=== PATIENT | male | born 1975 | race Caucasian/White ===

== ENCOUNTER 2016-05-28 10:02 | Emergency (ER) | payer OTHER ==
[2016-05-28 10:07] VITALS: BP 168/89; PULSE 82; RESP 16; TEMP 97
--- NOTE | 2016-05-28 10:26 | ED ---
ENT HPI - General Chief complaint: ENT Stated complaint: ear ache Time Seen by Provider: 05/28/16 10:18 Source: patient, RN notes reviewed Mode of arrival: ambulatory Limitations: no limitations - History of Present Illness Initial comments: 41-year-old male presents to the emergency department with a chief complaint of left ear pain and left-sided dental pain. Patient states she's had this pain for the past few days. Patient states that he had a fracture to his tooth about one week ago. Patient states last night his jaw was hurting more. Patient's ear was hurting and he had some blood in his mouth. Patient denies any fever chills cough cold runny nose with this. Patient denies any difficulty opening or closing the mouth or any pain radiating to the neck. Patient states he was concerned due to his continued pain so he thought that he should be evaluated. Patient denies any recent fever, chills, shortness of breath, chest pain, back pain, abdominal pain, nausea vomiting, numbness or tingling, dysuria or hematuria, constipation or diarrhea, headaches or visual changes, or any other current symptoms. - Related Data Previous Rx's Medication Instructions Recorded Erythromycin Ophth Oint [Romycin 1 applic RIGHT EYE QID #3.5 gm 04/03/15 Ophth Oint] Ibuprofen [Motrin] 600 mg PO Q6HR PRN #20 tab 05/28/16 Penicillin V Potassium [Pen Vee K] 500 mg PO TID #40 tab 05/28/16 Allergies Allergy/AdvReac Type Severity Reaction Status Date / Time No Known Allergies Allergy Verified 05/28/16 10:06 Review of Systems ROS Statement: Those systems with pertinent positive or pertinent negative responses have been documented in the HPI. ROS Other: All systems not noted in ROS Statement are negative. Past Medical History Past Medical History: No Reported History History of Any Multi-Drug Resistant Organisms: None Reported Past Surgical History: No Surgical Hx Reported Past Psychological History: No Psychological Hx Reported Smoking Status: Never smoker Past Alcohol Use History: None Reported Past Drug Use History: None Reported General Exam Limitations: no limitations General appearance: alert, in no apparent distress Head exam: Present: atraumatic, normocephalic, normal inspection ENT exam: Present: mucous membranes moist, TM's normal bilaterally Expanded Ear exam: Present: normal external inspection Mouth exam: Present: normal external inspection Teeth exam: Present: dental caries (Diffuse), fractured tooth # (18), other (No abscess). Absent: dental tenderness #, gingival enlargement Throat exam: normal inspection, tonsillar erythema Neck exam: Present: normal inspection. Absent: tenderness, meningismus, lymphadenopathy Respiratory exam: Present: normal lung sounds bilaterally. Absent: respiratory distress, wheezes, rales, rhonchi, stridor Cardiovascular Exam: Present: regular rate, normal rhythm, normal heart sounds. Absent: systolic murmur, diastolic murmur, rubs, gallop, clicks Neurological exam: Present: alert, oriented X3, CN II-XII intact. Absent: motor sensory deficit Psychiatric exam: Present: normal affect, normal mood Skin exam: Present: warm, dry, intact, normal color. Absent: rash Course Vital Signs 05/28/16 10:04 Temperature 97 F L Pulse Rate 82 Respiratory 16 Rate Blood Pressure 168/89 O2 Sat by Pulse 98 Oximetry Medical Decision Making - Medical Decision Making 41-year-old male presents with what appears to be most likely dental caries causing the patient's discomfort. Family stated that we will start him pain medication as well as antibiotics. We did discuss follow-up with his dentist discussed return parameters. Discussed all the patient's questions. He stated he understood and is in agreement with plan. This and will be discharged home. Disposition Clinical Impression: Dental caries Disposition: HOME SELF-CARE Condition: Stable Instructions: Dental Caries (ED) Additional Instructions: Please use medication as discussed. Please follow up with family doctor if symptoms have not improved over the next two days. Please return to the emergency room if your symptoms increase or worsen or for any other concerns. [facility] [place] [address] [phone] (existing clients only) For new clients: [phone] 1st consult: $50 (includes Xrays) Usually 30% less then private dentist for visits after. [employer] Have to pay $50 for Xrays anmd rest is covered. [phone] Prescriptions: Ibuprofen [Motrin] 600 mg PO Q6HR PRN #20 tab PRN Reason: Pain Penicillin V Potassium [Pen Vee K] 500 mg PO TID #40 tab Referrals: Malgorzata Lopez MD [STAFF PHYSICIAN] - 1-2 days Time of Disposition: 10:26
== END 2016-05-28 10:38 | disposition home or self-care (01) ==
LOC: EC 10:02
DX: K02.9 Dental caries, unspecified (principal); S02.5XXA Fracture of tooth (traumatic), initial encounter for closed fracture; H92.09 Otalgia, unspecified ear
CPT/HCPCS: 99282

== ENCOUNTER 2018-10-01 16:44 | Emergency (ER) | payer OTHER ==
[2018-10-01] MEDS ORDERED: MECLIZINE 12.5 MG TAB PO STA (17:09)
[2018-10-01] MEDS ORDERED: ONDANSETRON ODT 4 MG TAB PO STA ×2 (17:10→18:23)
--- NOTE | 2018-10-01 17:12 | ED ---
General Adult HPI - General Chief complaint: Nausea/Vomiting/Diarrhea Stated complaint: Dizzy, vomiting Time Seen by Provider: 10/01/18 17:01 Source: patient Mode of arrival: wheelchair Limitations: no limitations - History of Present Illness Initial comments: 23-year-old male presenting with room spinning dizziness, nausea, vomiting. Patient states his symptoms started at 10 AM with the dizziness. They have progressed and he has had multiple episodes of emesis. He denies FRANCISCO, vision change, focal weakness or numbness, chest pain, shortness of breath, fevers, or diarrhea. He denies history of vertigo or recent head injury. - Related Data Home Medications Medication Instructions Recorded Confirmed Dextroamphetamine/Amphetamine 10 mg PO BID 10/01/18 10/01/18 [Adderall] Dextroamphetamine/Amphetamine 20 mg PO BID 10/01/18 10/01/18 [Adderall] Previous Rx's Medication Instructions Recorded Meclizine [Antivert] 25 mg PO TID PRN #30 tab 10/01/18 Ondansetron Odt [Zofran Odt] 4 mg PO Q8HR PRN #15 tab 10/01/18 Allergies Allergy/AdvReac Type Severity Reaction Status Date / Time No Known Allergies Allergy Verified 10/01/18 18:00 Review of Systems ROS Statement: Those systems with pertinent positive or pertinent negative responses have been documented in the HPI. Review of Systems Constitutional: Denies fever, chills. Positive dizziness. Eyes: Denies change in vision, Denies pain Ears, nose, mouth, throat: Denies headaches, Denies sore throat Cardiovascular: Denies chest pain. Denies palpitations Respiratory: Denies shortness of breath, Denies cough Gastrointestinal: Denies abdominal pain. Positive nausea, vomiting, Denies diarrhea. Genitourinary: Denies hematuria, Denies infections Musculoskeletal: Denies pain, Denies swelling Integumentary: Denies rash Neurological: Denies headache, focal weakness, focal numbness Psychiatric: Denies anxiety, Denies depression Hematologic/Lymphatic: Denies easy bleeding or bruising ROS Other: All systems not noted in ROS Statement are negative. Past Medical History Past Medical History: No Reported History History of Any Multi-Drug Resistant Organisms: None Reported Past Surgical History: No Surgical Hx Reported Past Psychological History: No Psychological Hx Reported Smoking Status: Never smoker Past Alcohol Use History: None Reported Past Drug Use History: None Reported General Exam - General Exam Comments Initial Comments: General: Awake, alert, No acute Distress HENT: Normocephalic. Atraumatic Eyes: PERRL. EOMI. No scleral icterus. No injected conjunctiva. Bilateral fatigable nystagmus Neck: Full ROM Chest/Lungs: Clear to auscultation bilaterally. No wheezing, rhonchi, or rales Cardiac: Regular rate, rhythm. No murmurs or rubs Abdomen/GI: Soft, nontender, nondistended. No rebound, guarding, or rigidity. Musculoskeletal: Full ROM Skin: Warm, dry, intact Neurologic: A/Ox3, no weakness, no sensory deficit, no abnormal gait, no coordination deficit. Finger to nose intact bilaterally. rapid alternating movement intact bilaterally. Limitations: no limitations Course Vital Signs 10/01/18 10/01/18 10/01/18 16:56 18:23 18:28 Temperature 97.8 F 97.6 F Pulse Rate 87 80 Respiratory 18 14 Rate Blood Pressure 154/109 161/104 O2 Sat by Pulse 96 97 Oximetry 10/01/18 10/01/18 18:52 19:13 Temperature 97.6 F 97.2 F L Pulse Rate 78 78 Respiratory 13 18 Rate Blood Pressure 159/104 158/95 O2 Sat by Pulse 97 97 Oximetry EKG Findings - EKG Comments: EKG Findings:: EKG shows normal sinus rhythm at a rate of 77 bpm. MN interval 142 ms, QRS duration 114 ms, QT/QTc 404/[address] segment elevation, depression. No prolonged QT/QTc or MN interval. No dysrythmia noted. Medical Decision Making - Medical Decision Making 43 year-old male presenting from sitting dizziness. Initial exam the patient is awake, alert, no acute distress. VSS. Symptoms improved while in the emergency department. CT was negative. At this time the patient's symptoms are likely secondary to peripheral vertigo. No further emergent workup indicated. The patient was given return to ED instructions. They were instructed to follow up with their primary care provider. Stable for discharge at this time. Disposition Clinical Impression: Vertigo Disposition: HOME SELF-CARE Condition: Good Instructions (If sedation given, give patient instructions): Vertigo (ED), Hypertension (ED) Additional Instructions: Follow-up with your primary care physician this week. Prescriptions: Meclizine [Antivert] 25 mg PO TID PRN #30 tab PRN Reason: Vertigo Ondansetron Odt [Zofran Odt] 4 mg PO Q8HR PRN #15 tab PRN Reason: Nausea Is patient prescribed a controlled substance at d/c from ED?: No Referrals: None,Stated [REFERRING] - 1-2 days
--- NOTE | 2018-10-01 18:07 | CT ---
EXAMINATION TYPE: CT brain wo con DATE OF EXAM: 10/01/2018 COMPARISON: None HISTORY: Pt feeling diaphoretic, dizziy w/ N/V. CT DLP: 1150.4 mGycm. Automated Exposure Control for Dose Reduction was Utilized. TECHNIQUE: CT scan of the head is performed without contrast. FINDINGS: Ventricles of normal size. There is no mass effect nor midline shift. There is no sign of i ntracranial hemorrhage. Calvarium is intact. IMPRESSION: Negative CT scan of the brain.
[2018-10-01] MEDS ORDERED: DIAZEPAM 5 MG TAB PO STA (18:23)
[2018-10-01 18:53] VITALS: PULSE 78
[2018-10-01 19:15] VITALS: BP 158/95; RESP 18; TEMP 97.2
[2018-10-01] MEDS ORDERED: ONDANSETRON 4 MG ODT STARTER PACK 2 TAB BTL PO STA (19:16)
== END 2018-10-01 19:44 | disposition home or self-care (01) ==
LOC: EC 16:44
DX: R42 Dizziness and giddiness (principal); H55.09 Other forms of nystagmus; R11.2 Nausea with vomiting, unspecified
CPT/HCPCS: 93005; 70450; 99284; S0119

== ENCOUNTER 2021-09-27 16:48 | Emergency (ER) | payer BC ==
[2021-09-27] MEDS ORDERED: SODIUM CHLORIDE 0.9% 500 ML 500 ML IV ONE (17:15)
[2021-09-27 17:38] LABS: Basophils # (A) 0.1 k/uL (0-0.2); Basophils % (A) 1 %; Eosinophils # (A) 0.3 k/uL (0-0.7); Eosinophils % (A) 3 %; HCT 48.6 % (39.0-53.0); HGB 16.9 gm/dL (13.0-17.5); Lymphocytes # (A) 1.9 k/uL (1.0-4.8); Lymphocytes % (A) 19 %; MCH 32.1 pg (25.0-35.0); MCHC 34.7 g/dL (31.0-37.0); MCV 92.4 fL (80.0-100.0); Mean Platelet Volume 7.5; Monocytes # (A) 0.3 k/uL (0-1.0); Monocytes % (A) 3 %; Neutrophils # (A) 7.1 k/uL (1.3-7.7); Neutrophils % (A) 73 %; Platelet Count 256 k/uL (150-450); RBC 5.25 m/uL (4.30-5.90); RDW 13.6 % (11.5-15.5); WBC 9.7 k/uL (3.8-10.6)
--- NOTE | 2021-09-27 17:42 | ED ---
General Adult HPI - General Chief complaint: Chest Pain Stated complaint: chest pain Time Seen by Provider: 09/27/21 17:01 Source: patient, RN notes reviewed, old records reviewed Mode of arrival: ambulatory Limitations: no limitations - History of Present Illness Initial comments: 46-year-old male presenting for evaluation of lightheadedness, chest pain and pressure and diaphoresis. Patient states he had been working throughout the morning, feeling pretty much normal and then suddenly began feeling his symptoms of lightheadedness, nausea, chest pressure. He has no prior history of coronary artery disease. He does admit the history of hypertension and smoking. Symptoms have resolved with time my evaluation. - Related Data Home Medications Medication Instructions Recorded Confirmed Acetaminophen Tab [Tylenol Tab] 1,000 mg PO Q6HR PRN 09/27/21 09/27/21 Dextroamphetamine/Amphetamine 30 mg PO DAILY 09/27/21 09/27/21 [Adderall Xr 30 mg Capsule] Ibuprofen [Motrin Ib] 200 mg PO Q8H PRN 09/27/21 09/27/21 carvediloL [Coreg] 25 mg PO DAILY 09/27/21 09/27/21 Allergies Allergy/AdvReac Type Severity Reaction Status Date / Time No Known Allergies Allergy Verified 09/27/21 18:22 Review of Systems ROS Statement: Those systems with pertinent positive or pertinent negative responses have been documented in the HPI. ROS Other: All systems not noted in ROS Statement are negative. Past Medical History Past Medical History: Hypertension History of Any Multi-Drug Resistant Organisms: None Reported Past Surgical History: No Surgical Hx Reported Past Psychological History: No Psychological Hx Reported Smoking Status: Never smoker Past Alcohol Use History: None Reported Past Drug Use History: Marijuana General Exam Limitations: no limitations General appearance: alert, in no apparent distress Head exam: Present: atraumatic, normocephalic Eye exam: Present: normal appearance, PERRL ENT exam: Present: normal exam Neck exam: Present: normal inspection. Absent: tenderness, meningismus Respiratory exam: Present: normal lung sounds bilaterally. Absent: respiratory distress, wheezes, rales Cardiovascular Exam: Present: regular rate, normal rhythm GI/Abdominal exam: Present: soft. Absent: distended, tenderness, guarding Extremities exam: Present: normal inspection, normal capillary refill. Absent: pedal edema Neurological exam: Present: alert, oriented X3, CN II-XII intact. Absent: motor sensory deficit Psychiatric exam: Present: normal affect, normal mood Skin exam: Present: warm, dry, intact. Absent: cyanosis, diaphoretic Course Vital Signs 09/27/21 09/27/21 16:50 18:08 Temperature 97.6 F 98.2 F Pulse Rate 74 68 Respiratory 16 16 Rate Blood Pressure 125/66 123/80 O2 Sat by Pulse 96 95 Oximetry - Reevaluation(s) Reevaluation #1: 09/27/21 20:02 No further chest pain while emergency department EKG Findings - EKG Comments: EKG Findings:: EKG: Sinus rhythm, interventricular conduction delay, ST segment depression in lead 3. No ST segment elevation, rate 67, AR interval 159, QRS duration 118, QTC 434 Medical Decision Making - Medical Decision Making 46-year-old male with presented with an episode of lightheadedness, diaphoresis and chest discomfort. He states that the pain or discomfort in his chest is quite minimal. He has no prior history of CAD. EKG shows sinus rhythm without ST segment elevation. Chest x-rays clear. He has a normal CBC, normal CMP with the exception of mild hyperglycemia. Initial troponin is negative. I discussed admission for serial cardiac enzymes, further evaluation, telemetry and cardiology consultation. Patient declines. He is agreeable to repeat 3R troponin in the emergency department. This is performed and is negative. I did discuss results with the patient and indicated that the patient should return with any worsening or changing symptoms and he should follow-up with his primary care physician. - Lab Data Result diagrams: 09/27/21 17:26 09/27/21 17:26 Lab Results 09/27/21 09/27/21 09/27/21 Range/Units 17:26 17:26 17:26 WBC 9.7 (3.8-10.6) k/uL RBC 5.25 (4.30-5.90) m/uL Hgb 16.9 (13.0-17.5) gm/dL Hct 48.6 (39.0-53.0) % MCV 92.4 (80.0-100.0) fL MCH 32.1 (25.0-35.0) pg MCHC 34.7 (31.0-37.0) g/dL RDW 13.6 (11.5-15.5) % Plt Count 256 (150-450) k/uL MPV 7.5 Neutrophils % 73 % Lymphocytes % 19 % Monocytes % 3 % Eosinophils % 3 % Basophils % 1 % Neutrophils # 7.1 (1.3-7.7) k/uL Lymphocytes # 1.9 (1.0-4.8) k/uL Monocytes # 0.3 (0-1.0) k/uL Eosinophils # 0.3 (0-0.7) k/uL Basophils # 0.1 (0-0.2) k/uL PT 10.7 (9.0-12.0) sec INR 1.0 (<1.2) APTT 22.4 (22.0-30.0) sec Sodium 137 (137-145) mmol/L Potassium 3.9 (3.5-5.1) mmol/L Chloride 105 (98-107) mmol/L Carbon Dioxide 22 (22-30) mmol/L Anion Gap 10 mmol/L BUN 15 (9-20) mg/dL Creatinine 1.22 (0.66-1.25) mg/dL Est GFR (CKD-EPI)AfAm 83 (>60 ml/min/1.73 sqM) Est GFR (CKD-EPI)NonAf 72 (>60 ml/min/1.73 sqM) Glucose 173 H (74-99) mg/dL Calcium 9.1 (8.4-10.2) mg/dL Magnesium 1.9 (1.6-2.3) mg/dL Total Bilirubin 0.9 (0.2-1.3) mg/dL AST 32 (17-59) U/L ALT 30 (4-49) U/L Alkaline Phosphatase 66 (38-126) U/L Troponin I (0.000-0.034) ng/mL NT-Pro-B Natriuret Pep pg/mL Total Protein 7.5 (6.3-8.2) g/dL Albumin 4.3 (3.5-5.0) g/dL 09/27/21 09/27/21 09/27/21 Range/Units 17:26 17:26 19:25 WBC (3.8-10.6) k/uL RBC (4.30-5.90) m/uL Hgb (13.0-17.5) gm/dL Hct (39.0-53.0) % MCV (80.0-100.0) fL MCH (25.0-35.0) pg MCHC (31.0-37.0) g/dL RDW (11.5-15.5) % Plt Count (150-450) k/uL MPV Neutrophils % % Lymphocytes % % Monocytes % % Eosinophils % % Basophils % % Neutrophils # (1.3-7.7) k/uL Lymphocytes # (1.0-4.8) k/uL Monocytes # (0-1.0) k/uL Eosinophils # (0-0.7) k/uL Basophils # (0-0.2) k/uL PT (9.0-12.0) sec INR (<1.2) APTT (22.0-30.0) sec Sodium (137-145) mmol/L Potassium (3.5-5.1) mmol/L Chloride (98-107) mmol/L Carbon Dioxide (22-30) mmol/L Anion Gap mmol/L BUN (9-20) mg/dL Creatinine (0.66-1.25) mg/dL Est GFR (CKD-EPI)AfAm (>60 ml/min/1.73 sqM) Est GFR (CKD-EPI)NonAf (>60 ml/min/1.73 sqM) Glucose (74-99) mg/dL Calcium (8.4-10.2) mg/dL Magnesium (1.6-2.3) mg/dL Total Bilirubin (0.2-1.3) mg/dL AST (17-59) U/L ALT (4-49) U/L Alkaline Phosphatase (38-126) U/L Troponin I <0.012 <0.012 (0.000-0.034) ng/mL NT-Pro-B Natriuret Pep 259 pg/mL Total Protein (6.3-8.2) g/dL Albumin (3.5-5.0) g/dL Disposition Clinical Impression: Chest pain Disposition: HOME SELF-CARE Condition: Good Instructions (If sedation given, give patient instructions): Chest Pain (ED) Is patient prescribed a controlled substance at d/c from ED?: No Referrals: Clint Daly DO [Primary Care Provider] - 1-2 days Time of Disposition: 20:02
[2021-09-27 17:47] LABS: Partial Thromboplastin Time 22.4 sec (22.0-30.0); Prothrombin Time 10.7 sec (9.0-12.0)
[2021-09-27 17:49] LABS: Albumin 4.3 g/dL (3.5-5.0); Calcium 9.1 mg/dL (8.4-10.2); Magnesium 1.9 mg/dL (1.6-2.3); Potassium 3.9 mmol/L (3.5-5.1); Total Bilirubin 0.9 mg/dL (0.2-1.3); Total Protein 7.5 g/dL (6.3-8.2)
--- NOTE | 2021-09-27 17:54 | XR ---
EXAMINATION TYPE: XR chest 2V DATE OF EXAM: 09/27/2021 COMPARISON: NONE HISTORY: Chest pain TECHNIQUE: 2 views FINDINGS: Heart and mediastinum are normal. Lungs are clear. Diaphragm is normal. Bony thorax is norm al. IMPRESSION: Normal chest
[2021-09-27 20:44] VITALS: BP 126/76; PULSE 69; RESP 20; TEMP 98
== END 2021-09-27 20:43 | disposition home or self-care (01) ==
LOC: EC 16:48
DX: R07.89 Other chest pain (principal); I10 Essential (primary) hypertension; F12.90 Cannabis use, unspecified, uncomplicated; Z79.899 Other long term (current) drug therapy
CPT/HCPCS: 36415; 71046; 80053; 83735; 83880; 84484; 85025; 85610; 85730; 93005; 99285

== ENCOUNTER → 2023-09-14 | Outpatient (CLI) | payer OTHER ==
--- NOTE | 2023-09-14 17:38 | CA ---
Transthoracic Echo Report Name: Derrek Parish Age: 48 Gender: M : 1975 Exam Date: 09/14/2023 16:24 Exam Location: [place] [facility] Ht (in): 72 Wt (lb): 280 Ordering Physician: Clint Daly DO Attending/Referring Phys: Insulation Packer Diamond Friedman RDCS Procedure CPT: Indications: R07.89 Atypical Chest Pain Cardiac Hx: Technical Quality: Fair Contrast 1: Total Dose (mL): Contrast 2: Total Dose (mL): MEASUREMENTS (Male / Female) Normal Values 2D ECHO LV Diastolic Diameter PLAX 5.6 cm 4.2 - 5.9 / 3.9 - 5.3 cm LV Systolic Diameter PLAX 2.9 cm IVS Diastolic Thickness 1.1 cm 0.6 - 1.0 / 0.6 - 0.9 cm LVPW Diastolic Thickness 1.2 cm 0.6 - 1.0 / 0.6 - 0.9 cm LV Relative Wall Thickness 0.4 RV Internal Dim ED PLAX 3.2 cm Aortic Root Diameter 4.0 cm LA Systolic Diameter LX 4.6 cm 3.0 - 4.0 / 2.7 - 3.8 cm LV Diastolic Volume MOD BP 91.7 cm??? 67 - 155 / 56 - 104 cm??? LV Systolic Volume MOD BP 31.9 cm??? 22 - 58 / 19 - 49 cm??? LV Ejection Fraction MOD BP 65.2 % >= 55 % LV Cardiac Index MOD BP 1594.2 cm???/min???m??? LV Diastolic Volume MOD 4C 90.1 cm??? LV Systolic Volume MOD 4C 37.2 cm??? LV Ejection Fraction MOD 4C 58.7 % LV Cardiac Index MOD 4C 1408.5 cm???/min???m??? LV Diastolic Length 4C 8.1 cm LV Systolic Length 4C 6.5 cm LV Diastolic Volume MOD 2C 91.7 cm??? LV Systolic Volume MOD 2C 25.8 cm??? LV Ejection Fraction MOD 2C 71.9 % LV Cardiac Index MOD 2C 1755.1 cm???/min???m??? LV Diastolic Length 2C 7.8 cm LV Systolic Length 2C 6.1 cm M-MODE Aortic Root Diameter MM 3.8 cm LA Systolic Diameter MM 2.6 cm LA Ao Ratio MM 0.7 AV Cusp Separation MM 4.3 cm DOPPLER Mitral E Point Velocity 55.2 cm/s Mitral A Point Velocity 72.1 cm/s Mitral E to A Ratio 0.8 MV Deceleration Time 254.1 ms MV E' Velocity 9.6 cm/s Mitral E to MV E' Ratio 5.7 TR Peak Velocity 192.8 cm/s TR Peak Gradient 14.9 mmHg Right Ventricular Systolic Press 24.9 mmHg FINDINGS Left Ventricle Left ventricular ejection fraction is estimated at 55-60 %. Mildly increased septal wall thickness. Left ventricular cavity size normal. No obvious regional wall motion abnormalities. Right Ventricle Mild right ventricular dilatation. Right ventricular systolic pressure within normal limits. Right Atrium Mild right atrial dilatation. Left Atrium Mildly increased left atrial diameter. Mitral Valve Structurally normal mitral valve. Trace mitral regurgitation. No mitral stenosis. Aortic Valve Trileaflet aortic valve. No aortic valve stenosis or regurgitation. Tricuspid Valve Structurally normal tricuspid valve. Trace tricuspid regurgitation. Pulmonic Valve Structurally normal pulmonic valve. Trace pulmonic regurgitation. No pulmonic stenosis. Pericardium No pericardial or pleural effusion. Echo free space anterior to the right ventricle likely represents a fat pad. Aorta Mildly dilated aortic annulus. CONCLUSIONS Normal LV function Previewed by: Dr. Zaki Felix MD (Electronically Signed) Final Date: 14 September 2023 17:37
== END | disposition home or self-care (01) ==
LOC: RADECHMAIN 16:12
PROVIDERS: ATTEND Family Medicine
DX: R07.89 Other chest pain (principal)
CPT/HCPCS: 93306

== ENCOUNTER → 2023-09-16 | Outpatient (CLI) | payer OTHER ==
--- NOTE | 2023-09-16 17:40 | CA ---
Exercise Stress Test Report Name: Derrek Parish Exam Date: 09/16/2023 09:05 Exam Location: [place] Stress Ht (in): 72 Wt (lb): 280 BSA: 2.46 Ordering Phys: Clint Daly DO Referring Phys: CLINT DALY Technologist: Сергей Jennings Age: 48 Gender: M : 1975 Procedure CPT: Indications: R07.89 Atypical Chest Pain ICD-10 Codes: Patient History: Chest pain and palpitations Medications: Meds past 24 hrs: Pretest Chest Pain: STRESS TEST Andrea Protocol Exercise Duration (min:sec): 10:[address] Depressions (mm): Angina Score: Guido Score: Resting HR (bpm): 72 Peak HR (bpm): 137 Resting BP (mmHg): 147 / 107 Peak BP (mmHg): 196 / 115 MPHR: 174 Target HR: 148 % MPHR: 79 METS: 12.1 Total Dose: Peak Dose: Atropine: Double Product: 08113 BP Response: Stress Termination: MAX EXERTION Stress Symptoms: DIFFICULTY IN BREATHING Stress Summary: ECG ANALYSIS Resting ECG: Normal sinus rhythm normal axis normal intervals Stress ECG: Patient exercised on Andrea protocol for 10 minutes achieving 85% of predicted maximal heart rate without chest pain or diagnostic ST segment depression CONCLUSIONS Excellent exercise tolerance Negative stress test by EKG criteria Dr. Zaki Felix MD (Electronically Signed) Final Date: 16 September 2023 17:39
== END | disposition home or self-care (01) ==
LOC: RADNMMAIN 08:17
PROVIDERS: ATTEND Family Medicine
DX: R07.89 Other chest pain (principal)
CPT/HCPCS: 93017

== ENCOUNTER 2023-11-04 06:26 | Day surgery (SDC) | payer OTHER ==
[2023-11-01 11:28] VITALS: BMI 38.0
[2023-11-04] MEDS: LACTATED RINGERS 1,000 ML IV SCH (07:13)
[2023-11-04 07:16] VITALS: TEMP 97.2
[2023-11-04] MEDS: IV FLUID CONTINUATION 1,000 ML IV ONE ×2 (07:17→07:48)
[2023-11-04] MEDS ORDERED: PROPOFOL 10 MG/ML 20 ML VIAL IV ONE (07:24)
[2023-11-04] MEDS ORDERED: LIDOCAINE 2% (PF) 20 MG/ML 5 ML VIAL ONE (07:24)
--- NOTE | 2023-11-04 07:45 | P.PCN ---
Date of Procedure: 11/04/23 Procedure(s) Performed: Brief history: Patient is a pleasant 48-year-old white male scheduled for an elective upper endoscopy as well as colonoscopy as a part of evaluation of GERD and screening for colon cancer Procedure performed: Esophagogastroduodenoscopy with biopsy Colonoscopy Preoperative diagnosis: GERD Screening for colon cancer Anesthesia: MAC Procedure: After informed consent was obtained from the patient was brought into the endoscopy unit and IV sedation was administered by anesthesia under continuous monitoring. Initially upper endoscopy was done. The Olympus GF 160 video endoscope was inserted inserted into the mouth and esophagus intubated without any difficulty and was gradually advanced into the stomach and duodenum and carefully examined. The bulb and second part of the duodenum appeared normal. The scope was then withdrawn into the stomach adequately insufflated with air and upon careful examination the antrum had a 5 mm polyp that was biopsied. Mucosa of the body, cardia and fundus appeared normal. The scope was then withdrawn into the esophagus. Small hiatal hernia noted. The GE junction was located at 43 cm to the incisors. It appeared regular with mild erythema but no erosions or ulcerations. Rest of the esophagus appeared normal. Patient tolera nakul the procedure well. At this time the patient continued to remain sedation. Initial digital rectal examination was normal. Olympus CF 160 video colonoscope was then inserted into the rectum and gradually advanced to the cecum without any difficulty. Careful examination was performed as the scope was gradually being withdrawn. The prep was excellent. The cecum, ascending colon, transverse colon, descending colon, sigmoid colon and rectum appeared normal. Scattered sigmoid diverticulosis retroflexion was performed in the rectum and small internal were noted. Patient tolerated the procedure well. Impression: 1. Upper endoscopy revealed small hiatal hernia, LA grade a reflux esophagitis and 5 mm antral polyp status post biopsy 2. Colonoscopy revealed scattered sigmoid diverticulosis and small internal hemorrhoids Recommendations: Findings of this examination were discussed with the patient as well as his family. He was advised to follow-up with the biopsy results. Continue with omeprazole 20 mg daily and follow antireflux measures. Recommended repeat screening colonoscopy in 10 years.
[2023-11-04 08:21] VITALS: BP 131/80; PULSE 59; RESP 16
== END 2023-11-04 08:29 | disposition home or self-care (01) ==
LOC: ORWHC2ENDO 06:26
PROVIDERS: ATTEND Internal Medicine Gastroenterology
DX: Z12.11 Encounter for screening for malignant neoplasm of colon (principal); K29.80 Duodenitis without bleeding; D72.820 Lymphocytosis (symptomatic); K29.50 Unspecified chronic gastritis without bleeding; K44.9 Diaphragmatic hernia without obstruction or gangrene; K57.30 Diverticulosis of large intestine without perforation or abscess without bleeding; K21.00 Gastro-esophageal reflux disease with esophagitis, without bleeding; K64.8 Other hemorrhoids; I10 Essential (primary) hypertension; G47.33 Obstructive sleep apnea (adult) (pediatric); F41.8 Other specified anxiety disorders; F90.9 Attention-deficit hyperactivity disorder, unspecified type; E66.9 Obesity, unspecified; I20.9 Angina pectoris, unspecified; Z79.899 Other long term (current) drug therapy; Z88.5 Allergy status to narcotic agent
CPT/HCPCS: 88305; 45378; 43239; J2704; J2001

== ENCOUNTER → 2023-12-14 | Outpatient (CLI) | payer OTHER ==
--- NOTE | 2023-12-14 10:28 | CT ---
EXAMINATION TYPE: CT chest w con CT DLP: 738 mGycm, Automated exposure control for dose reduction was used. DATE OF EXAM: 12/14/2023 10:14 AM COMPARISON: Chest radiograph 09/27/2021 CLINICAL INDICATION:Male, 48 years old with history of R91.8 MULT PULMONARY NODULES; PHH, Multiple pu lmonary nodules TECHNIQUE: Multiple axial images were obtained through the chest following the administration of 100 cc of Isovue 300. . Coronal and sagittal reformats reviewed. FINDINGS: LUNGS/ PLEURA: No pleural effusion, pneumothorax, or focal consolidation. Several scattered pulmonary nodules demonstrated. Examples include lateral right upper lobe 3.4 mm nodule (series 4, image 12), posterior right upper lobe 4.6 mm pulmonary nodule (series 4, image 17), lateral right upper lobe 3 m m pulmonary nodule (series 4, image 21), right lower lobe 5.7 mm pulmonary nodule (series 4, image 4 7), left lower lobe 2.8 mm pulmonary nodule (series 4, image 43), and a lingula 3 mm pulmonary nodule (series 4, image 46). AIRWAY: Patent and unremarkable.. HEART: Size within normal limits. No pericardial effusion. MEDIASTINUM: No evidence of adenopathy. VASCULATURE: No aortic aneurysm. MUSCULOSKELETAL: No acute osseous abnormalities. Mild anterior hypertrophic changes of the spine. SOFT TISSUES/LYMPH NODES: Bilateral gynecomastia with right greater than left. LOWER NECK: No significant findings. UPPER ABDOMEN: Diffuse low-attenuation to the liver parenchyma. 1.2 cm hypodense lesion within the sp fiona likely representing a hemangioma. IMPRESSION: Several scattered pulmonary nodules measuring less than 6 mm. In accordance with Fleischner Society g uidelines. Low risk patients do not need follow-up. In high-risk patients, a [address] orax can be considered. [facility], , 12/14/2023 10:26 AM
== END | disposition home or self-care (01) ==
LOC: RADCTMAIN 08:38
PROVIDERS: ATTEND Family Medicine
CPT/HCPCS: 71260

== ENCOUNTER → 2024-01-27 | Outpatient (CLI) | payer OTHER ==
--- NOTE | 2024-01-27 09:42 | US ---
EXAMINATION TYPE: US abdomen complete DATE OF EXAM: 01/27/2024 COMPARISON: 03/18/2014. CLINICAL INDICATION: Male, 48 years old with history of K21.9 GERD R63.4 ABNORMAL WEIGHT LOSS; weight loss, abd pain x 1 yr TECHNIQUE: Grayscale and color Doppler imaging of the abdomen was performed. FINDINGS: EXAM MEASUREMENTS: Liver Length: 15.7 cm Gallbladder Wall: 0.2 cm CBD: 0.6 cm, color Doppler imaging was utilized to isolate the common bile duct for measurement. 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 The intrahepatic portion of the IVC and proximal abdominal aorta are within normal limits. There is no evidence of cholelithiasis. Common bile duct is unremarkable. The visualized portions of the pancreas are homogenous. The spleen is unremarkabl e. Kidneys are symmetric and free of hydronephrosis. No renal lesions are seen. IMPRESSION: 1. No evidence for acute process. 2. Hepatic steatosis. [facility], , 01/27/2024 9:40 AM
== END | disposition home or self-care (01) ==
LOC: RADUSWWP 08:11
PROVIDERS: ATTEND Internal Medicine Gastroenterology
DX: K21.9 Gastro-esophageal reflux disease without esophagitis (principal); R63.4 Abnormal weight loss; K76.0 Fatty (change of) liver, not elsewhere classified
CPT/HCPCS: 76700